=== PATIENT | female | born 1950 | race Caucasian/White ===

== ENCOUNTER 2024-12-22 06:49 | Day surgery (SDC) | payer MEDICARE, BC, SELFPAY ==
[2024-12-16 14:47] VITALS: BMI 28.5
--- NOTE | 2024-12-17 12:08 | EXP.HP ---
History of Present Illness *Admission Date: 12/22/24 *History of present illness: Mrs. Krause is a 74-year-old female who is here for diagnostic EGD. The patient has had chronic functional dyspepsia dyspepsia with nausea, bloating, gassiness and belching. Her colonoscopy with pa in October 2021 was normal. Her EGD with pa in May 2022 showed reactive gastropathy as well as a very small sliding 1 to 2 cm hiatal hernia. She did have a laparoscopic cholecystectomy in February 2022 without improvement. The patient did have sucrose to 13 breath testing which was normal. She also had a fecal elastase with normal results (fecal elastase greater than 500 mcg/g). The patient had formally been on domperidone but this was stopped because of risks. She does have obstipation and is taking MiraLAX plus Citrucel daily. She does not eat a lot of greens, legumes or lentils. She has noted improvement with Lactaid when she eats dairy. The patient does get nausea and early satiety. The examination is deemed medically necessary for diagnostic EGD. The patient has been seen, interviewed and examined prior to the procedure by both myself and the anesthesia provider. [facility] Disclaimer: The information contained in this section may have been updated after the patient was seen, as this information can be updated by other users. Medical History Hyperlipidemia Hemorrhoids GERD (gastroesophageal reflux disease) History of colon polyps Basal cell carcinoma of nose Surgical History History of hemorrhoidectomy History of hysterectomy History of appendectomy Family History Brother Brain cancer Melanoma Sister Breast cancer Social History (Updated 12/22/24 @ 08:17 by Nhi Hurd RN) Smoking Status: Never smoker alcohol intake: never substance use type: denies use current occupational status: retired Travel in the last 8 weeks?: None Have you lived/traveled outside [place] in past 30 days?: No Contact w/someone who lives/traveled outside US past 30 days?: No Exposure to someone with infectious disease in past 14 days?: No Do you have a fever (greater than 100.4 F or 38 C)?: No Have you tested positive for COVID-19?: No Exposed to someone with COVID-19 in past 14 days?: No Do you have a sore throat?: No Do you have a cough?: No Do you have any weakness?: No Are you experiencing any nausea/vomitting?: No Do you have any diarrhea?: No Are you experiencing any unusual bleeding?: No Do you have any muscle aches/pain?: No Do you have any abdominal pain?: No Are you experiencing loss of taste or smell?: No Other Medical History Have you received the Pneumonia Vaccine: Yes Review of Systems Review of Systems Review of systems (narrative): Negative *Cardiovascular Comments: Negative *Gastrointestinal Comments: Negative *Genitourinary Comments: Negative *Musculoskeletal Comments: Negative *Neurologic Comments: Negative Meds Home Medications and Allergies Home Medications ?Medication ?Instructions ?Recorded ?Confirmed ?Type Creon 36,000 unit-114,000 1 cap PO .With meals #100 caps 11/19/24 12/16/24 Rx unit-180,000 unit capsule,delayed release (uxlhvz-qldublbd-fanxirc (pork)) cholecalciferol (vitamin D3) 25 25 mcg PO DAILY 11/19/24 12/16/24 History mcg (1,000 unit) capsule erythromycin 250 mg tablet 250 mg PO QAC #90 tabs 11/19/24 12/16/24 Rx escitalopram oxalate 5 mg tablet 5 mg PO DAILY 11/19/24 12/16/24 History estradiol 1 mg tablet 0.5 mg PO DAILY 11/19/24 12/16/24 History losartan 50 mg-hydrochlorothiazide 1 tab PO DAILY 11/19/24 12/16/24 History 12.5 mg tablet methylcellulose (with sugar) oral 1 tbsp PO DAILY 11/19/24 12/16/24 History powder (Citrucel (sucrose) oral powder) pantoprazole 40 mg tablet,delayed 40 mg PO DAILY 11/19/24 12/16/24 History release polyethylene glycol 3350 17 17 g PO DAILY 11/19/24 12/16/24 History gram/dose oral powder (Miralax) rosuvastatin 10 mg tablet 10 mg PO DAILY 11/19/24 12/16/24 History zolpidem 10 mg tablet 10 mg PO HS 11/19/24 12/16/24 History New Prescriptions to Start Prescriptions: Allergies Allergy/AdvReac Type Severity Reaction Status Date / Time No Known Allergies Allergy Verified 12/22/24 08:17 Exam Data for Last 24 hours I & O for Last 24 hours: Intake & Output 12/14/24 12/15/24 12/16/24 12/17/24 23:59 23:59 23:59 23:59 Weight 156 lb *Routine HEENT Exam Head: Present normocephalic Eye: Present EOMI and PERRL ENT: Present mucous membranes moist *Routine Neck Exam Neck: Present supple *Routine Respiratory Exam Respiratory: Present CTA bilaterally *Routine Cardiovascular Exam Cardiovascular: Present RRR *Routine Abdominal Exam Abdominal: Present soft and normoactive bowel sounds; Absent tenderness *Routine Rectal Exam Rectal:: deferred *Routine Genitalia Exam Genitalia:: deferred *Routine Extremities Exam Extremities: Absent cyanosis, clubbing or edema *Routine Skin Exam Skin: Present warm; Absent rash *Routine Neurological Exam Neurological: Present alert and oriented X3 Assessment and Plan *Assessment and plan (1) Nausea: Status: Acute Category: Medical Code(s): R11.0 - Nausea (2) Belching: Status: Acute Category: Medical Code(s): R14.2 - Eructation (3) Bloating: Status: Acute Category: Medical Code(s): R14.0 - Abdominal distension (gaseous) (4) Early satiety: Status: Acute Category: Medical Code(s): R68.81 - Early satiety (5) Gastric dysmotility: Status: Acute Category: Medical Code(s): K31.89 - Other diseases of stomach and duodenum Plan A/P: 1. Nausea, bloating, belching, early satiety and dyspepsia is the preprocedural diagnosis. The patient will be anesthetized/sedated using MAC sedation. The patient has been seen and examined. Cardiac and lung assessment prior to the examination is stable. Proceed with planned diagnostic EGD.
--- NOTE | 2024-12-22 07:03 | HMH.PROCNOTE ---
[facility] Procedure Note Date: 12/22/24 Time: 08:54 Procedure Note:: Upper Endoscopy Procedure Report: Esophagogastroduodenoscopy with cold biopsies Endoscopost: Lei Ibarra II, MD Referring Physician: Andrew Yeager MD Date of Procedure: December 22, 2024 Equipment: Olympus GIF-1100 standard upper endoscope Sedation: MAC sedation Indications: Mrs. Krause is a 74-year-old female who is here for diagnostic EGD. The patient has had chronic functional dyspepsia with nausea, bloating, gassiness and belching. She reports continuous heartburn and burping. Her colonoscopy with az in October 2021 was normal. Her EGD with az in May 2022 showed reactive gastropathy as well as a very small sliding 1 to 2 cm hiatal hernia. She did have a laparoscopic cholecystectomy in February 2022 without improvement. The patient did have sucrose to 13 breath testing which was normal. She also had a fecal elastase with normal results (fecal elastase greater than 500 mcg/g). The patient had formally been on domperidone but this was stopped because of risks. She does have obstipation and is taking MiraLAX plus Citrucel daily. The patient does have 6-7 bowel movements daily. She does not eat a lot of greens, legumes or lentils. She has noted improvement with Lactaid when she eats dairy. The patient does get nausea and early satiety. She reports no dysphagia. The examination is deemed medically necessary for diagnostic EGD. Procedure: Prior to the procedure, a history and physical exam was performed, and patient's medications and allergies were reviewed. The risks, benefits and alternatives of the sedation and procedure were discussed with the patient. All questions were answered and informed consent was obtained. The patient was brought to the procedure room. Patient identification and proposed procedure were verified by the physician and the nurse. The patient was placed in a left lateral decubitus position and the scope was passed under direct vision. Throughout the procedure, the patient's blood pressure, pulse, and oxygen saturations were monitored continuously. The upper GI endoscopy was accomplished without difficulty. The patient tolerated the procedure well. Findings: The scope was passed directly into the upper esophagus and advanced to the third portion of the duodenum. The post bulbar duodenum, ampulla and duodenal bulb were normal with normal mucosa and conniventes. 2 cold biopsies were taken from the second portion of the duodenum for the disaccharidase assay. The scope was withdrawn through a normal duodenal bulb and pylorus into the stomach. There was mild linear reactive gastropathy of the antrum with bile reflux. The body and fundus of the stomach were normal. Upon retroflexion there was a very small sliding 1 to 2 cm hiatal hernia. Cold biopsies were taken from the antrum/lesser curvature. The scope was then withdrawn into the esophagus. There was no evidence of reflux esophagitis or Zaman's. A cold biopsy was taken at the GE junction. There were tertiary contractions and evidence of mild esophageal dysmotility. The remainder of the esophageal mucosa was normal. Impression: 1. Nonerosive GERD with mild esophageal dysmotility and very small sliding 1 to 2 cm hiatal hernia 2. Mild linear reactive gastropathy of antrum Plan: I will follow-up the biopsies and disaccharidase assay. Most of her symptoms of dyspepsia are related to and driven by lower intestinal gas pressure gradients/high gas pressure buildup resulting in backflow of bile and peptic fluid from the duodenum into the stomach (duodenal reflux). This gas production (carbon dioxide, hydrogen, methane, etc.) from the lower intestinal tract is the byproduct of colonic bacterial fermentation. This colonic fermentation occurs when there is more carbohydrate (dietary starches, sugars and high residue plant fiber) substrate that does not get digested (in the middle or small intestine) or occurs when there is colonic fecal buildup and colonic bacterial overgrowth. This indeed leads to bloating and the gas pressure buildup with gas pressure gradients that do drive backflow and dyspepsia.
[2024-12-22 07:58] VITALS: BP 149/74; PULSE 63; RESP 16; TEMP 36.2; O2SAT 98; BMI 28.5
[2024-12-22] MEDS: LACTATED RINGERS 1000ML 1,000 ML 50 ML IV (08:21)
--- NOTE | 2024-12-22 08:25 | P.PNANES_ITS ---
[facility] Disclaimer: The information contained in this section may have been updated after the patient was seen, as this information can be updated by other users. Medical History Hyperlipidemia Hemorrhoids GERD (gastroesophageal reflux disease) History of colon polyps Basal cell carcinoma of nose Surgical History History of hemorrhoidectomy History of hysterectomy History of appendectomy Family History Brother Brain cancer Melanoma Sister Breast cancer Social History (Updated 12/22/24 @ 08:17 by Nhi Hurd RN) Smoking Status: Never smoker alcohol intake: never substance use type: denies use current occupational status: retired Travel in the last 8 weeks?: None Have you lived/traveled outside [place] in past 30 days?: No Contact w/someone who lives/traveled outside [place] past 30 days?: No Exposure to someone with infectious disease in past 14 days?: No Do you have a fever (greater than 100.4 F or 38 C)?: No Have you tested positive for COVID-19?: No Exposed to someone with COVID-19 in past 14 days?: No Do you have a sore throat?: No Do you have a cough?: No Do you have any weakness?: No Are you experiencing any nausea/vomitting?: No Do you have any diarrhea?: No Are you experiencing any unusual bleeding?: No Do you have any muscle aches/pain?: No Do you have any abdominal pain?: No Are you experiencing loss of taste or smell?: No [facility] Anesthesia Checklist Patient Identification Patient Identification: Arm Band and Verbal (Name & ) Structural Data Admitted From: Home Planned Operative Procedure/s: EGD Consent for Planned Operative Procedure(s) Verified: Yes Verified Documents: Surgical Consent NPO Status Verified Time NPO: 00:00 Additional verifications Anesthesia Reactions: No Airway Assessment Mallampati Score:: Class II C-Spine Mobility Assessed: Yes TMJ Mobility Assessed: Yes Dentition: Good Dentition Neurological Assessment Level of Consciousness: Awake, Alert and Appropriate Hx Seizures: No Numbness or tingling in extremities: No Anesthesia Plan Anesthesia Risk discussed: Yes Anesthesia Plan: Verified ASA Class: III Anesthesia Type: MAC
[2024-12-22 08:56] VITALS: BP 106/58; PULSE 57; RESP 16; TEMP 36.1; O2SAT 95
[2024-12-22 09:06] VITALS: BP 113/62; PULSE 69; RESP 16; O2SAT 96
[2024-12-22 09:16] VITALS: BP 122/65; PULSE 69; RESP 18; O2SAT 96
[2024-12-22 09:26] VITALS: BP 126/56; PULSE 68; RESP 16; O2SAT 97
[2024-12-25 13:12] LABS: Interpretation Notes (.); Lactase 24.9 (>/= 14.0); Maltase 232.3 (>/= 110.0); Palatinase 16.12 (>/= 8.5); Reference Notes (.); Sucrase 53.89 (>/= 25.0)
== END 2024-12-22 09:32 | disposition home or self-care (01) ==
PROVIDERS: PCP Internal Medicine; Visit Provider Internal Medicine Gastroenterology
PROC: 0DJ08ZZ Inspection of Upper Intestinal Tract, Via Natural or Artificial Opening Endoscopic (ICD-10-PCS; CPT 43239; principal; 2024-12-22 09:00)
DX: K44.9 Diaphragmatic hernia without obstruction or gangrene (principal); K21.9 Gastro-esophageal reflux disease without esophagitis; K22.4 Dyskinesia of esophagus; K30 Functional dyspepsia; K31.89 Other diseases of stomach and duodenum; E78.5 Hyperlipidemia, unspecified
CPT/HCPCS: 43239; 82657; 88305; J2003; J2704; J7120